=== PATIENT | female | born 1995 | race African-American/Black ===

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

== ENCOUNTER 2017-02-08 13:19 | Emergency (ER) | payer OTHER ==
[~2017-02-08] VITALS: Ht 162.6 cm; Wt 76.0 kg
[2017-02-08 13:20] VITALS: BP 112/67; PULSE 74; RESP 16; TEMP 98; O2SAT 99
--- NOTE | 2017-02-08 15:13 | RADRPT ---
EXAM DATE/TIME: 02/08/2017 15:03 [facility] COMPARISON: CHEST SINGLE AP, July 30, 2016, 16:59. INDICATIONS : Patient states she fell at practice, right patellar pain. MEDICAL HISTORY : None. SURGICAL HISTORY : None. ENCOUNTER: Initial ACUITY: 2 days PAIN SCORE: 7/10 LOCATION: Right Knee FINDINGS: Four view examination of the right knee demonstrates no evidence of fracture or dislocation. Bony mi neralization is normal. The articular surfaces are intact. The suprapatellar soft tissues have a no rmal configuration. CONCLUSION: 1. Normal examination. Onur Puentes MD on February 08, 2017 at 15:12 Board Certified Radiologist. This report was verified electronically.
[2017-02-08] MEDS ORDERED: IBUP800T23 PO (15:41)
--- NOTE | 2017-02-08 15:42 | PD ---
HPI Chief Complaint: Musculoskeletal Complaint Time Seen by Provider: 15:39 Travel History International Travel<30 days: No Contact w/Intl Traveler<30days: No Traveled to known affect area: No History of Present Illness HPI 21-year-old female presents to the emergency Department with complaint of right knee pain since yesterday after coming down on her knee and it felt like her kneecap shifted downward. She has been ambulatory on the affected extremity and says it feels like her knee is going to give out. Pain is to the anterior aspect just below the patella. Denies paresthesias, loss of sensation to the affected extremity. Reports decreased range of motion at the knee secondary to pain. Denies fever, chills, nausea, vomiting. Has not taken any medications or tried any treatments to alleviate her symptoms. Pain is aggravated with walking, palpation, bending the knee. No known relieving factors. No known allergies. No other modifying factors or associated signs and symptoms. PFSH Past Medical History Medical History: Denies Significant Hx Diminished Hearing: No Musculoskeletal: Yes (RIGHT KNEE REBUILD) Tetanus Vaccination: < 5 Years ?: Not Past Surgical History Surgical History: No Previous Surgery Joint Replacement: Yes (RIGHT KNEE ) Social History Alcohol Use: No Tobacco Use: No Substance Use: No Allergies-Medications (Allergen,Severity, Reaction): Coded Allergies: No Known Allergies (Unverified , 12/17/16) Reported Meds & Prescriptions Reported Meds & Active Scripts Active Ibuprofen 800 Mg Tab 800 Mg PO Q8H PRN Review of Systems Except as stated in HPI: all other systems reviewed are Neg Physical Exam Narrative GENERAL: Well-nourished, well-developed female patient, in no acute distress SKIN: Warm and dry. HEAD: Atraumatic. Normocephalic. EYES: Pupils equal and round. No scleral icterus. No injection or drainage. ENT: Mucosa pink and moist. Airway patent. NECK: Trachea midline. CARDIOVASCULAR: Regular rate. RESPIRATORY: No accessory muscle use. GASTROINTESTINAL: Rounded. MUSCULOSKELETAL: Right knee is with mild edema to the anterior aspect and with tenderness on palpation; without erythema, ecchymosis; no obvious deformity; decreased range of motion secondary to patient guarding and pain; joint stable with negative drawer test. Right lower extremity is supple and non-tense with 2 + pedal pulses and sensory intact and without erythema or edema. No obvious deformities. No edema. NEUROLOGICAL: Awake and alert. Oriented 3. No obvious cranial nerve deficits. Motor grossly within normal limits. Normal speech. PSYCHIATRIC: Appropriate mood and affect; insight and judgment normal. Data Data Last Documented VS Vital Signs Date Time Temp Pulse Resp B/P Pulse Ox O2 Delivery O2 Flow Rate FiO2 02/08/17 13:20 98.0 74 16 112/67 99 Room Air Orders Knee, Complete (4vws) (02/08/17 14:43) Ed Urine Pregnancytest Poc (02/08/17 14:43) Crutches (02/08/17 15:42) Splint Or Brace Apply/Monitor (02/08/17 15:42) [facility] Medical Decision Making Medical Screen Exam Complete: Yes Emergency Medical Condition: Yes Medical Record Reviewed: Yes Differential Diagnosis Knee sprain, knee injury, less likely fracture or dislocation Narrative Course 21-year-old female with right knee pain. Right lower extremity is supple and non-tense with 2+ pedal pulses and sensory intact and without erythema or edema. Right knee X-ray previously ordered in triage. 1539: Right knee x-ray with no acute findings. Crutches and Ulices bandage provided support. Ibuprofen prescribed for home. Instructed patient to follow up with orthopedic if symptoms persist greater than 7-10 days, or earlier. Patient verbalizes understanding and agreement with treatment plan. Patient is medically cleared and stable for discharge. Discussed reasons to return to the emergency department. Instructed patient to follow up with primary care provider. Patient agrees with treatment plan. The patients vital signs are stable and the patient is stable for outpatient follow-up and treatment. Patient discharged home, stable and in no acute distress. Diagnosis Primary Impression: Right knee sprain Qualified Code: S83.91XA - Sprain of right knee, unspecified ligament, initial encounter Referrals: Orthopedist Primary Care Physician Patient Instructions: Crutch Instructions (ED), General Instructions, Knee Sprain (ED) Departure Forms: School Release, Return to School Date: Feb 09, 2017 Tests/Procedures Additional Instructions: Tylenol or ibuprofen as needed and as directed to reduce pain and inflammation Rest, ice, compress, and elevate extremity to decrease pain and inflammation Knee Brace for support Crutches for support Avoid aggravating activity; increase activity as tolerated Follow-up with primary care provider Return to the emergency department immediately with worsening symptoms Med/Other Pt SpecificInfo: Prescription(s) given Scripts Ibuprofen 800 Mg [id number] Mg PO Q8H PRN (PAIN SCALE 1 TO 10) #30 TAB Ref 0 Prov:Bruna Gallegos 02/08/17 Disposition: 01 DISCHARGE HOME Condition: Stable Bruna Gallegos Feb 08, 2017 15:42
== END 2017-02-08 16:25 | disposition home or self-care (01) ==
LOC: NETRI 13:19
DX: S83.91XA Sprain of unspecified site of right knee, initial encounter (principal); X58.XXXA Exposure to other specified factors, initial encounter
CPT/HCPCS: 73564; 84703; 99283; E0113

== ENCOUNTER 2017-02-12 20:52 | Emergency (ER) | payer OTHER ==
[~2017-02-12] VITALS: Ht 162.6 cm; Wt 74.0 kg
[~2017-02-12 20:52] MED LIST: IBUP800T23 PO
[2017-02-12 20:53] VITALS: BP 133/82; PULSE 92; RESP 14; TEMP 98.7; O2SAT 100
--- NOTE | 2017-02-12 21:02 | PD ---
Physical Exam Date Seen by Provider: Feb 12, 2017 Time Seen by Provider: 21:00 Narrative 21 year old female presents to the emergency department for evaluation of right knee pain. Patient was seen on Wednesday for same issue, but states pain is worsening. Pain 9/. Patient awaiting bed placement. Data Data Last Documented VS Vital Signs Date Time Temp Pulse Resp B/P Pulse Ox O2 Delivery O2 Flow Rate FiO2 02/12/17 20:53 98.7 92 14 133/82 100 Room Air MDM Supervised Visit with MICKY: Xiomara Whelan Feb 12, 2017 21:02
--- NOTE | 2017-02-12 22:27 | PD ---
HPI Chief Complaint: Pain: Acute or Chronic Time Seen by Provider: 22:20 Travel History International Travel<30 days: No Contact w/Intl Traveler<30days: No Traveled to known affect area: No History of Present Illness HPI 21-year-old female right knee pain. She reports that she went dancing 4 days ago and since then she has had pain in her right knee which has been worsening. She was seen here on February 08 and had a negative x-ray. Discharge with Ulices wrap, crutches, ibuprofen. She has been using these modalities but the pain persisted which prompted evaluation. She reports that she has not been dancing in 2 years and feels like she just overuse her right knee. She doesn't recall a specific injury such as a fall or twisting event. She has no other complaints. PFSH Past Medical History Diminished Hearing: No Musculoskeletal: Yes (RIGHT KNEE REBUILD) Immunizations Current: Yes Tetanus Vaccination: Unknown Influenza Vaccination: Yes ?: Unknown Past Surgical History Joint Replacement: Yes (RIGHT KNEE ) Social History Alcohol Use: No Tobacco Use: No Substance Use: No Allergies-Medications (Allergen,Severity, Reaction): Coded Allergies: No Known Allergies (Unverified , 02/12/17) Reported Meds & Prescriptions Reported Meds & Active Scripts Active Tylenol-Codeine #3 (Acetaminophen-Codeine) 300-30 mg Tab 1 Tab PO Q4H PRN Review of Systems Except as stated in HPI: all other systems reviewed are Neg Physical Exam Narrative GENERAL: Well-nourished female in no acute distress SKIN: Warm and dry. CARDIOVASCULAR: Regular rate and rhythm. No murmur appreciated. RESPIRATORY: No accessory muscle use. Clear to auscultation. Breath sounds equal bilaterally. GASTROINTESTINAL: Abdomen soft, non-tender, nondistended. Hepatic and splenic margins not palpable. MUSCULOSKELETAL: No obvious deformities. Generalized tenderness to palpation of the right knee, slight effusion, pain with range of motion, therefore stress examination deferred. Data Data Last Documented VS Vital Signs Date Time Temp Pulse Resp B/P Pulse Ox O2 Delivery O2 Flow Rate FiO2 02/12/17 20:53 98.7 92 14 133/82 100 Room Air Orders Acetamin-Codeine 300-30 Mg (Tylenol-Code (02/12/17 22:30) MDM Medical Decision Making Medical Screen Exam Complete: Yes Emergency Medical Condition: Yes Medical Record Reviewed: Yes Differential Diagnosis Sprain, strain, ligamentous disruption, meniscal disruption, tibial plateau fracture Narrative Course The patient is encouraged to follow-up with her primary care physician in one week for recheck, she may require outpatient MRI imaging. Her knee x-ray from previous visit is normal. She is being discharged with Tylenol with codeine for breakthrough pain. Diagnosis Primary Impression: Right knee sprain Qualified Code: S83.91XD - Sprain of right knee, unspecified ligament, subsequent encounter Additional Instructions: Continue resting, crutches as needed, ibuprofen, continue Tylenol with codeine for breakthrough pain. As discussed follow-up with primary care physician next week. If symptoms persist outpatient MRI imaging may be warranted. Med/Other Pt SpecificInfo: Prescription(s) given, Orthopedic Instructions Scripts Acetaminophen-Codeine (Tylenol-Codeine #3)300-30 mg Tab1 Tab PO Q4H PRN (PAIN) # 20 TAB Ref 0 Prov:Hugo Vazquez MD 02/12/17 Disposition: 01 DISCHARGE HOME Condition: Stable Ajit Sheth Feb 12, 2017 22:27
[2017-02-12] MEDS ORDERED: ACETAMINOPHEN/CODEINE 300 MG/30 MG TAB PO ONE (22:30)
[2017-02-12] MEDS ORDERED: TYLETAB34 PO ×2 (22:43→22:46)
== END 2017-02-12 23:03 | disposition home or self-care (01) ==
LOC: NEPK 20:52
DX: S83.91XA Sprain of unspecified site of right knee, initial encounter (principal); X50.3XXA Overexertion from repetitive movements, initial encounter; Y93.41 Activity, dancing
CPT/HCPCS: 99283

== ENCOUNTER 2017-03-03 22:20 | Emergency (ER) | payer OTHER ==
[~2017-03-03] VITALS: Ht 162.6 cm; Wt 74.0 kg
[~2017-03-03 22:20] MED LIST changes: -IBUP800T23 PO; +TYLETAB34 PO
[2017-03-03 22:22] VITALS: PULSE 107; RESP 16; TEMP 99.7; O2SAT 97
[2017-03-03 22:53] VITALS: BP 121/53
[2017-03-03] MEDS ORDERED: ACETAMINOPHEN 325 MG TAB PO ONE (23:00)
--- NOTE | 2017-03-03 23:02 | PD ---
HPI Chief Complaint: Cold / Flu Symptoms Time Seen by Provider: 22:52 Travel History International Travel<30 days: No Contact w/Intl Traveler<30days: No Traveled to known affect area: No History of Present Illness HPI 21-year-old female presents for evaluation. For the past 2 days she has had cough, congestion, fever, sore throat. She reports that she currently is enrolled in college, multiple sick contacts at school. She's been having fevers as high as 103 at home. She's been using Motrin which seems to help some but symptoms persisted which prompted evaluation. Denies recent travel, abdominal pain, nausea or vomiting, dysuria, flank pain, recent travel, rash. She has no other complaints at this time. [facility] Past Medical History Diminished Hearing: No Musculoskeletal: Yes (RIGHT KNEE REBUILD) Immunizations Current: Yes ?: Not LMP: 02/17/17 Past Surgical History Joint Replacement: Yes (RIGHT KNEE ) Social History Alcohol Use: No Tobacco Use: No Substance Use: No Allergies-Medications (Allergen,Severity, Reaction): Coded Allergies: No Known Allergies (Unverified , 02/12/17) Reported Meds & Prescriptions Reported Meds & Active Scripts Active Tessalon Perles (Benzonatate) 100 Mg Cap 200 Mg PO TID PRN Reported [ Control Pills] Review of Systems Except as stated in HPI: all other systems reviewed are Neg Physical Exam Narrative GENERAL: Well-developed well-nourished female in no acute distress SKIN: Warm and dry. HEAD: Atraumatic. Normocephalic. EYES: Pupils equal and round. No scleral icterus. No injection or drainage. ENT: No nasal bleeding or discharge. Mucous membranes pink and moist. No oral pharyngeal erythema or exudate. NECK: Trachea midline. No JVD. No lymphadenopathy. Neck supple full range of motion. CARDIOVASCULAR: Regular rate and rhythm. No murmur appreciated. RESPIRATORY: No accessory muscle use. Clear to auscultation. Breath sounds equal bilaterally. GASTROINTESTINAL: Abdomen soft, non-tender, nondistended. Hepatic and splenic margins not palpable. Data Data Last Documented VS Vital Signs Date Time Temp Pulse Resp B/P Pulse Ox O2 Delivery O2 Flow Rate FiO2 03/03/17 22:53 121/53 03/03/17 22:22 99.7 107 16 97 Room Air Orders Chest, Pa & Lat (03/03/17 ) Acetaminophen (Tylenol) (03/03/17 23:00) Influenzae A/B Antigen (03/03/17 22:57) MDM Medical Decision Making Medical Screen Exam Complete: Yes Emergency Medical Condition: Yes Medical Record Reviewed: Yes Differential Diagnosis Influenza, pneumonia, bronchitis, sinusitis, pharyngitis Narrative Course 21-year-old female with 2 days of cough, congestion, fevers. She has a low- grade fever in triage. She appears well. She has no meningeal signs. Plan is for Influenza antigen, chest x-ray. She will be given Tylenol for her fever. Chest x-ray is negative for pneumonia. The influenza antigen test is also negative however her symptoms are certainly consistent with a viral syndrome such as influenza. Recommended supportive treatment. She'll be given a prescription for Tessalon. Discussed signs and symptoms that would warrant returning to the emergency room. She is stable for discharge. Diagnosis Primary Impression: Upper respiratory infection Qualified Code: J06.9 - Upper respiratory tract infection, unspecified type Departure Forms: School Release, Return to School Date: March 08, 2017 Tests/Procedures Additional Instructions: Tessalon for cough. Stay well hydrated and well-nourished. Use over-the- counter Tylenol or Motrin for fever per dosing instructions on the bottle. Follow-up with primary care physician as needed and return for any acutely new or worsening symptoms. Med/Other Pt SpecificInfo: Prescription(s) given Scripts Benzonatate (Tessalon Perles)100 Mg [id number] Mg PO TID PRN (COUGH) #30 CAP Ref 0 Prov:Benoit Jacinto MD 03/04/17 Disposition: 01 DISCHARGE HOME Condition: Stable Ajit Sheth Mar 03, 2017 23:02
[2017-03-03] MEDS ORDERED: BIRTH CONTROL PILLS (23:04)
--- NOTE | 2017-03-04 | RADRPT ---
EXAM DATE/TIME: 03/03/2017 23:11 [facility] COMPARISON: No previous studies available for comparison. INDICATIONS : Cough and congestion. MEDICAL HISTORY : None. SURGICAL HISTORY : None. ENCOUNTER: Initial ACUITY: 2 days PAIN SCORE: 0/10 LOCATION: Bilateral chest FINDINGS: PA and lateral views of the chest demonstrate the lungs to be symmetrically aerated without evidence of mass, infiltrate or effusion. The cardiomediastinal contours are unremarkable. Osseous structure s are intact. CONCLUSION: Normal examination for a patient of this age. Carlos Alberto France MD on March 03, 2017 at 23:57 Board Certified Radiologist. This report was verified electronically.
[2017-03-04] MEDS ORDERED: BENZ100 PO (00:10)
== END 2017-03-04 00:28 | disposition home or self-care (01) ==
LOC: NEPK 22:20
DX: J06.9 Acute upper respiratory infection, unspecified (principal); R50.9 Fever, unspecified; R05 Cough; Z87.39 Personal history of other diseases of the musculoskeletal system and connective tissue
CPT/HCPCS: 71020; 87804; 99283

== ENCOUNTER 2017-06-18 09:03 | Emergency (ER) | payer OTHER ==
[~2017-06-18] VITALS: Ht 162.6 cm; Wt 85.0 kg
[~2017-06-18 09:03] MED LIST changes: +BENZ100 PO; +BIRTH CONTROL PILLS; -TYLETAB34 PO
[2017-06-18 09:08] VITALS: BP 117/70; PULSE 73; RESP 19; TEMP 98; O2SAT 99
[2017-06-18] MEDS ORDERED: ACETAMINOPHEN 500 MG CPLT PO ONE (10:00)
[2017-06-18] MEDS ORDERED: IBUPROFEN 400 MG TAB PO ONE (10:00)
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
[2017-06-18 10:32] LABS: BETA HCG QUANT LESS THAN 1 MIU/ML (0-5)
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
== END 2017-06-18 12:17 | disposition home or self-care (01) ==
LOC: NEPD 09:03
DX: M54.9 Dorsalgia, unspecified (principal); V43.52XA Car driver injured in collision with other type car in traffic accident, initial encounter
CPT/HCPCS: 72110; 72125; 84702; 99285

== ENCOUNTER 2017-08-30 17:14 | Emergency (ER) | payer OTHER ==
[~2017-08-30] VITALS: Ht 162.6 cm; Wt 76.0 kg
[2017-08-30 17:16] VITALS: BP 122/73; PULSE 89; RESP 16; TEMP 99.1; O2SAT 99
[2017-08-31] MEDS ORDERED: PRED-503 PO (16:47)
== END 2017-08-30 20:20 | disposition left against medical advice (07) ==
LOC: NETRI 17:14
DX: Z53.21 Procedure and treatment not carried out due to patient leaving prior to being seen by health care provider (principal)
CPT/HCPCS: 99281

== ENCOUNTER 2017-08-31 14:35 | Emergency (ER) | payer OTHER ==
[~2017-08-31] VITALS: Ht 152.4 cm; Wt 76.0 kg
[2017-08-31 14:38] VITALS: BP 116/65; PULSE 80; RESP 15; TEMP 98.8; O2SAT 98
--- NOTE | 2017-08-31 15:16 | PD ---
Physical Exam Date Seen by Provider: Aug 31, 2017 Time Seen by Provider: 15:16 Narrative 22-year-old Afro-[place] female here with bilateral breast tenderness and questionable rash for the past 2 days. Patient states it's a burning type of rash. She denies . Patient denies recent exposures to different soaps , lotions, or other medications or food. Pain is 8 out of 10. She has no known drug allergies. Data Data Last Documented VS Vital Signs Date Time Temp Pulse Resp B/P (MAP) Pulse Ox O2 Delivery O2 Flow Rate FiO2 08/31/17 14:38 98.8 80 15 116/65 (82) 98 MDM Medical Record Reviewed: Yes Supervised Visit with MICKY: Yes Narrative Course Vital signs are stable. Patient is awaiting bed placement. Scripts No Active Prescriptions or Reported Meds Condition: Stable Sergio Mcgregor Aug 31, 2017 15:16
[2017-08-31] MEDS ORDERED: PRED-503 PO (16:47)
--- NOTE | 2017-08-31 16:47 | PD ---
HPI Chief Complaint: Skin Problem Time Seen by Provider: 16:45 Travel History International Travel<30 days: No Contact w/Intl Traveler<30days: No Traveled to known affect area: No History of Present Illness HPI 22-year-old female presents to emergency Department with complaint of an itchy rash to bilateral breasts 2 days. Says the rash is also burning in sensation. Says the rash came while she was showering the other day. Reports breast and nipple tenderness. Denies change in breast skin, dimpling of the breasts, nipple discharge. Denies fever, vomiting. Denies new lotions, soaps, detergents, medications, foods, clothing, bras. Last menstrual period was the beginning of August. Takes control for contraception. Denies risk of . Has not taken any medications or tried any treatments to alleviate her symptoms. Rates pain 8/10. No known Relieving factors. No known allergies. Has no other medical complaints. No other modifying factors or associated signs and symptoms. PFSH Past Medical History Diminished Hearing: No Musculoskeletal: Yes (RIGHT KNEE REBUILD) Immunizations Current: Yes Tetanus Vaccination: < 5 Years ?: Not Past Surgical History Joint Replacement: Yes (RIGHT KNEE ) Social History Alcohol Use: No Tobacco Use: No Substance Use: No Allergies-Medications (Allergen,Severity, Reaction): Coded Allergies: No Known Allergies (Unverified , 08/31/17) Reported Meds & Prescriptions Reported Meds & Active Scripts Active Deltasone (Prednisone) 20 Mg Tab 40 Mg PO DAILY 5 Days Review of Systems Except as stated in HPI: all other systems reviewed are Neg Physical Exam Narrative GENERAL: Well-nourished, well-developed patient black female in no acute distress; afebrile, nontoxic-appearing SKIN: Warm and dry. Exam done in the presence of a nurse: Small areas of maculopapular rash to bilateral breasts: Breasts are without erythema, edema, nipple drainage, dimpling. No cellulitic process noted. HEAD: Atraumatic. Normocephalic. EYES: Pupils equal and round. No scleral icterus. No injection or drainage. ENT: Mucosa pink and moist. Airway patent. EARS: Bilateral pinnae and external canals appear within normal limits. NECK: Trachea midline. No lymphadenopathy. CARDIOVASCULAR: Regular rate. RESPIRATORY: No accessory muscle use. GASTROINTESTINAL: Rounded. MUSCULOSKELETAL: No obvious deformities. No clubbing. No cyanosis. No edema. NEUROLOGICAL: Awake and alert. Oriented 3. No obvious cranial nerve deficits. Motor grossly within normal limits. Normal speech. Moves all extremities. 5/5 strength to all extremities. PSYCHIATRIC: Appropriate mood and affect; insight and judgment normal. Data Data Last Documented VS Vital Signs Date Time Temp Pulse Resp B/P (MAP) Pulse Ox O2 Delivery O2 Flow Rate FiO2 08/31/17 17:02 08/31/17 14:38 98.8 80 15 98 Orders Orders Ed Discharge Order (08/31/17 16:47) [facility] Medical Decision Making Medical Screen Exam Complete: Yes Emergency Medical Condition: Yes Medical Record Reviewed: Yes Differential Diagnosis Contact dermatitis, hives, nonspecific rash, acute rash Narrative Course 22-year-old female with a nonspecific rash or skin interruption to bilateral breasts. Possibly contact dermatitis. Patient is afebrile and nontoxic appearing. Instructed patient to follow up with dermatology. Deltasone prescribed for home. Instructed patient to use Benadryl and/or topical anti- itch creams as directed and as needed. Instructed patient to follow up with primary care provider. Patient verbalizes understanding and agreement with treatment plan. Patient is medically cleared and stable for discharge. Discussed reasons to return to the emergency department. Patient agrees with treatment plan. The patients vital signs are stable and the patient is stable for outpatient follow-up and treatment. Patient discharged home, stable and in no acute distress. Diagnosis Primary Impression: Rash and nonspecific skin eruption Referrals: [facility] Primary Care Physician Patient Instructions: Acute Rash (ED), Contact Dermatitis (ED), General Instructions Departure Forms: Tests/Procedures, Work Release Enter return to work date: Sep 01, 2017 Additional Instructions: Take oral steroids as prescribed [id number] topicals to reduce itch Benadryl as directed and as needed to reduce itch Follow-up with your primary care provider Return to the emergency department immediately with worsening of symptoms Med/Other Pt SpecificInfo: Prescription(s) given Scripts Prednisone (Deltasone) 20 Mg Tab 40 MG PO DAILY for 5 Days, #10 TAB 0 Refills Prov: Bruna Gallegos 08/31/17 Disposition: 01 DISCHARGE HOME Condition: Stable Bruna Gallegos Aug 31, 2017 16:47
== END 2017-08-31 17:00 | disposition home or self-care (01) ==
LOC: NEPK 14:35
DX: R21 Rash and other nonspecific skin eruption (principal)
CPT/HCPCS: 99283